=== PATIENT | male | born 1995 | race Caucasian/White ===

== ENCOUNTER 2019-05-07 12:59 | Emergency (ER) | payer SELFPAY ==
[~2019-05-07] VITALS: Ht 182.9 cm; Wt 78.0 kg
[~2019-05-07 12:59] MED LIST: COLACE100 MG PO; OXYCODONE-ACET1 EAC1 PO
[2019-05-07] MEDS ORDERED: IBUPROFEN200 M1 PO (13:12)
[2019-05-07] MEDS ORDERED: NORCO 5-325 TA1 EACH PO (14:08)
== END 2019-05-07 14:24 | disposition home or self-care (01) ==
LOC: ED 12:59
DX: S52.125A Nondisplaced fracture of head of left radius, initial encounter for closed fracture (principal); S43.102A Unspecified dislocation of left acromioclavicular joint, initial encounter; V00.131A Fall from skateboard, initial encounter; F17.200 Nicotine dependence, unspecified, uncomplicated; Z88.0 Allergy status to penicillin
CPT/HCPCS: 29105; 73030; 73080; 99283-25; 99406

== ENCOUNTER 2019-06-07 07:40 | Emergency (ER) | payer OTHER ==
[~2019-06-07] VITALS: Ht 182.9 cm; Wt 78.0 kg
[~2019-06-07 07:40] MED LIST changes: +IBUPROFEN200 M1 PO; +NORCO 5-325 TA1 EACH PO
== END 2019-06-07 09:30 | disposition home or self-care (01) ==
LOC: ED 07:40
DX: S16.1XXA Strain of muscle, fascia and tendon at neck level, initial encounter (principal); S20.212A Contusion of left front wall of thorax, initial encounter; F17.200 Nicotine dependence, unspecified, uncomplicated; V89.2XXA Person injured in unspecified motor-vehicle accident, traffic, initial encounter
CPT/HCPCS: 71046; 72040; 99284-25; 99406